=== PATIENT | male | born 1955 | race Caucasian/White ===

== ENCOUNTER 2020-10-25 01:17 | Observation (INO) ==
[2020-10-25 02:14] LABS: Alanine Aminotransferase 19 U/L (16-61); Albumin 3.4 G/DL (3.4-5.0); Alkaline Phosphatase 100 U/L (45-117); Aspartate Amino Transferase 13 U/L (0-37); Bilirubin,Total < 0.39 MG/DL (0.2-1.0); Blood Urea Nitrogen 19 MG/DL (7-18); Calcium 9.1 MG/DL (8.5-10.1); Estimated Glom Filtration Rate 82 ML/MIN; Glucose 101 MG/DL (74-106); Osmolality,Calculated 280.4 MOS/KG (273-304)
[2020-10-25 02:27] LABS: Basophils % 0.6 % (0.0-0.8); Eosinophils # 0.2 10*3/uL (0.0-0.87); Eosinophils % 2.9 % (0.00-10.9); Hematocrit 41.8 VOL% (42.0-52.0); Hemoglobin 13.4 GM/DL (14.0-18.0); Immature Granulocytes % 0.1 %; Immature Granulocytes Absolute 0.01 #; Lymphocytes # 2.6 10*3/uL (1.4-4.0); Lymphocytes % 37.1 % (21.2-54.2); Mean Corpuscular HGB Conc 32.1 GM/DL (32-36); Mean Corpuscular Volume 93.7 FL (87-102); Mean Platelet Volume 9.9 FL (9.6-12.0); Monocytes % 10.3 % (1.7-12.7); Platelet Count 164 T/CUMM (130-400); Red Blood Count 4.46 MC/CUMM (3.8-5.5); Red Cell Distribution Width 12.7 % (9.3-17.3)
[2020-10-25 02:38] LABS: PT Patient Result 10.4 SECS (9.8-11.9); Partial Thromboplastin Time 26.2 SECS (23.9-33.8)
[2020-10-25] MEDS ORDERED: ONDANSETRON 4 MG/2 ML VIAL IV PRN (02:50)
[2020-10-25 05:48] LABS: Basophils % 0.5 % (0.0-0.8); Eosinophils # 0.1 10*3/uL (0.0-0.87); Eosinophils % 2.1 % (0.00-10.9); Hemoglobin 13.5 GM/DL (14.0-18.0); Immature Granulocytes % 0.3 %; Immature Granulocytes Absolute 0.02 #; Lymphocytes # 2.3 10*3/uL (1.4-4.0); Lymphocytes % 37.8 % (21.2-54.2); Mean Corpuscular HGB Conc 33.8 GM/DL (32-36); Mean Corpuscular Volume 90.1 FL (87-102); Mean Platelet Volume 10.1 FL (9.6-12.0); Monocytes % 8.8 % (1.7-12.7); Neutrophils % 50.5 % (38.7-73.9); Platelet Count 148 T/CUMM (130-400); Red Blood Count 4.44 MC/CUMM (3.8-5.5); Red Cell Distribution Width 12.8 % (9.3-17.3); White Blood Count 6.2 T/CUMM (4-12)
[2020-10-25 05:57] LABS: Albumin 3.3 G/DL (3.4-5.0); Bilirubin,Total 0.4 MG/DL (0.2-1.0); Calcium 9.2 MG/DL (8.5-10.1); Osmolality,Calculated 279.4 MOS/KG (273-304); Total Protein 7.1 G/DL (6.4-8.3)
[2020-10-25] MEDS ORDERED: PANTOPRAZOLE 40 MG TABLET PO SCH (09:00)
[2020-10-25] MEDS: ASPIRIN CHEW 81 MG TABLET PO SCH (09:53)
[2020-10-25] MEDS ORDERED: NITROGLYCERIN SL 0.4 MG TABLET SL PRN (11:06)
[2020-10-25] MEDS: NITROGLYCERIN 2% OINT 1 INCH/GM PACK TOP SCH (20:12)
[2020-10-25] MEDS ORDERED: ROSUVASTATIN 20 MG TABLET PO SCH (21:00)
[2020-10-25] MEDS: ASPIRIN EC 81 MG TABLET PO SCH (21:29)
[2020-10-25] MEDS: PANTOPRAZOLE 40 MG TABLET PO SCH (21:29)
[2020-10-25] MEDS: ENOXAPARIN 40 MG/0.4 ML SYRINGE SUBCUT SCH (21:29)
[2020-10-25] MEDS: lisinopriL 20 MG TABLET PO SCH (21:32)
[2020-10-26] MEDS: NITROGLYCERIN 2% OINT 1 INCH/GM PACK TOP SCH ×4 (04:38→18:48)
[2020-10-26 05:15] LABS: Basophils % 0.4 % (0.0-0.8); Eosinophils # 0.2 10*3/uL (0.0-0.87); Eosinophils % 2.4 % (0.00-10.9); Hematocrit 41.4 VOL% (42.0-52.0); Hemoglobin 13.2 GM/DL (14.0-18.0); Immature Granulocytes % 0.3 %; Immature Granulocytes Absolute 0.02 #; Lymphocytes # 2.7 10*3/uL (1.4-4.0); Lymphocytes % 39.1 % (21.2-54.2); Mean Corpuscular HGB Conc 31.9 GM/DL (32-36); Mean Corpuscular Volume 93.5 FL (87-102); Mean Platelet Volume 10.2 FL (9.6-12.0); Monocytes % 10.6 % (1.7-12.7); Neutrophils % 47.2 % (38.7-73.9); Platelet Count 157 T/CUMM (130-400); Red Blood Count 4.43 MC/CUMM (3.8-5.5); Red Cell Distribution Width 12.7 % (9.3-17.3)
[2020-10-26 05:43] LABS: Calcium 8.8 MG/DL (8.5-10.1); Osmolality,Calculated 279.4 MOS/KG (273-304)
[2020-10-26 05:46] LABS: Risk Ratio 3.65; VLDL CHOLESTEROL 21.6 MG/DL
[2020-10-26 05:54] LABS: Troponin I 0.052 NG/ML (0.00-0.045)
[2020-10-26] MEDS: ASPIRIN CHEW 81 MG TABLET PO SCH (09:48)
[2020-10-26 10:02] LABS: Troponin I 0.043 NG/ML (0.00-0.045)
[2020-10-26] MEDS: ROSUVASTATIN 20 MG TABLET PO SCH (21:33)
[2020-10-26] MEDS: PANTOPRAZOLE 40 MG TABLET PO SCH (21:34)
[2020-10-26] MEDS: ASPIRIN EC 81 MG TABLET PO SCH (21:34)
[2020-10-26] MEDS: lisinopriL 20 MG TABLET PO SCH (21:34)
[2020-10-26] MEDS: ENOXAPARIN 40 MG/0.4 ML SYRINGE SUBCUT SCH (21:34)
[2020-10-27] MEDS: NITROGLYCERIN 2% OINT 1 INCH/GM PACK TOP SCH ×4 (02:39→18:03)
[2020-10-27 05:50] LABS: Basophils % 0.5 % (0.0-0.8); Eosinophils # 0.2 10*3/uL (0.0-0.87); Hematocrit 42.4 VOL% (42.0-52.0); Hemoglobin 13.9 GM/DL (14.0-18.0); Immature Granulocytes % 0.3 %; Immature Granulocytes Absolute 0.02 #; Lymphocytes # 2.5 10*3/uL (1.4-4.0); Mean Corpuscular HGB Conc 32.8 GM/DL (32-36); Mean Corpuscular Volume 91.6 FL (87-102); Monocytes % 10.2 % (1.7-12.7); Platelet Count 157 T/CUMM (130-400); Red Blood Count 4.63 MC/CUMM (3.8-5.5); Red Cell Distribution Width 12.6 % (9.3-17.3); White Blood Count 7.4 T/CUMM (4-12)
[2020-10-27 06:23] LABS: Troponin I 0.089 NG/ML (0.00-0.045)
[2020-10-27 06:32] LABS: Osmolality,Calculated 283.3 MOS/KG (273-304)
[2020-10-27] MEDS: ASPIRIN CHEW 81 MG TABLET PO SCH (09:06)
[2020-10-27] MEDS ORDERED: DIAZEPAM 5 MG TABLET PO ONE (13:52)
[2020-10-27] MEDS ORDERED: diphenhydrAMINE CAP 25 MG CAPSULE PO ONE (13:52)
[2020-10-27] MEDS ORDERED: POTASSIUM CHLORIDE RIDER 10 MEQ in PREMIX 1 EACH IV PRN (13:52)
[2020-10-27] MEDS ORDERED: MAGNESIUM SULF RIDER 2 GM in PREMIX 1 EACH IV PRN (13:52)
[2020-10-27] MEDS ORDERED: SODIUM CHLORIDE 0.45% 1,000 ML IV SCH (14:00)
[2020-10-27] MEDS: SODIUM CHLORIDE 0.9% 1,000 ML IV SCH ×2 (14:04→21:04)
[2020-10-27] MEDS ORDERED: LIDOCAINE 1% 20 ML VIAL ONE (14:24)
[2020-10-27] MEDS ORDERED: MIDAZOLAM 2 MG/2 ML VIAL ONE (14:25)
[2020-10-27] MEDS ORDERED: fentaNYL 100 MCG/2 ML VIAL ONE (14:25)
[2020-10-27] MEDS ORDERED: HEPARIN 5,000 UNIT/1 ML VIAL ONE (14:48)
[2020-10-27] MEDS ORDERED: TIROFIBAN 5,000 MCG/100 ML PREMIX IV ONE (14:49)
[2020-10-27] MEDS ORDERED: TIROFIBAN 5,000 MCG/100 ML PREMIX IV SCH (14:58)
[2020-10-27] MEDS ORDERED: TICAGRELOR 90 MG TABLET ONE (15:42)
[2020-10-27] MEDS: lisinopriL 20 MG TABLET PO SCH (20:57)
[2020-10-27] MEDS: ASPIRIN EC 81 MG TABLET PO SCH (20:58)
[2020-10-27] MEDS: PANTOPRAZOLE 40 MG TABLET PO SCH (20:58)
[2020-10-27] MEDS: ROSUVASTATIN 20 MG TABLET PO SCH (20:58)
[2020-10-27] MEDS: TICAGRELOR 90 MG TABLET PO SCH (21:49)
[2020-10-28] MEDS: NITROGLYCERIN 2% OINT 1 INCH/GM PACK TOP SCH ×3 (01:04→12:38)
[2020-10-28 05:15] LABS: Basophils % 0.4 % (0.0-0.8); Eosinophils # 0.1 10*3/uL (0.0-0.87); Eosinophils % 1.9 % (0.00-10.9); Hematocrit 37.7 VOL% (42.0-52.0); Hemoglobin 12.5 GM/DL (14.0-18.0); Immature Granulocytes % 0.1 %; Immature Granulocytes Absolute 0.01 #; Lymphocytes # 1.4 10*3/uL (1.4-4.0); Lymphocytes % 19.1 % (21.2-54.2); Mean Corpuscular HGB Conc 33.2 GM/DL (32-36); Mean Corpuscular Volume 90.8 FL (87-102); Mean Platelet Volume 9.8 FL (9.6-12.0); Monocytes % 9.7 % (1.7-12.7); Neutrophils % 68.8 % (38.7-73.9); Platelet Count 148 T/CUMM (130-400); Red Blood Count 4.15 MC/CUMM (3.8-5.5); Red Cell Distribution Width 12.6 % (9.3-17.3); White Blood Count 7.5 T/CUMM (4-12)
[2020-10-28 05:28] LABS: Calcium 8.1 MG/DL (8.5-10.1); Osmolality,Calculated 277.5 MOS/KG (273-304)
[2020-10-28 05:35] LABS: Troponin I 0.532 NG/ML (0.00-0.045)
[2020-10-28] MEDS ORDERED: lisinopriL 10 MG TABLET PO SCH (08:46)
[2020-10-28] MEDS ORDERED: amLODIPine 2.5 MG TABLET PO SCH (09:00)
[2020-10-28] MEDS: TICAGRELOR 90 MG TABLET PO SCH (09:27)
[2020-10-28 13:43] LABS: Troponin I 0.528 NG/ML (0.00-0.045)
[2020-10-28] MEDS ORDERED: CETIRIZINE 10 MG TABLET PO PRN (15:09)
[2020-10-28 17:10] VITALS: BP 106/56
== END 2020-10-28 18:30 | disposition home or self-care (01) ==
LOC: N.ED 01:17 → N.EDINP 01:17 → N.TELES 16:54
PROVIDERS: ADMIT Internal Medicine; ATTEND Internal Medicine
PROC: CLCCHCL (ICD-10-PCS; 2020-10-27 14:45)